=== PATIENT | male | born 1985 | race Two or more races ===

== ENCOUNTER 2016-12-02 19:17 | Emergency (ER) | payer OTHER ==
[2016-12-02 19:25] VITALS: BP 156/85; PULSE 113; RESP 18; TEMP 98.2; O2SAT 93
--- NOTE | 2016-12-02 19:26 | UCPHY ---
H & P Patient Type: New Chief Complaint Nursing Narrative: boil under left armpit x 4 days, very painful. Denies fever HPI/ROS: HPI CHIEF COMPLAINT: Abscess left Axilla HISTORY OF PRESENT ILLNESS: this patient is a 31-year-old male significant past medical history for asthma no diabetes, presents to the urgent care with a abscess under his right arm. Patient states for the past 3 days progressively getting worse and more painful. He could tolerate the pain anymore came to the urgent care for evaluation. Upon arrival here he has a large abscess right axilla 7 cm x 8 cm. Past Medical History: Asthma Past Surgical History: no recent surgical history Social History: denies use of drugs alcohol tobacco products Family History: noncontributory ROS REVIEW OF SYSTEMS: A comprehensive 10 point review of systems is otherwise negative aside from elements mentioned in the history of present illness. Exam Constitutional triage nursing summary reviewed, vital signs reviewed, awake/ alert. Eyes normal conjunctivae and sclera, EOMI, PERRLA. HENT normal inspection, atraumatic, moist mucus membranes, no epistaxis, neck supple/ no meningismus, no raccoon eyes. Respiratory clear to auscultation bilaterally, normal breath sounds, no respiratory distress, no wheezing. Cardiovascular rate normal, regular rhythm, no murmur, no edema, distal pulses normal. Gastrointestinal soft, non-tender, no rebound, no guarding, normal bowel sounds, no distension, no pulsatile mass. Genitourinary no CVA tenderness. Musculoskeletal right axilla: large abscess 7 x 8 cm, induration, fluctuance to head, no midline vertebral tenderness, full range of motion, no calf swelling , no tenderness of extremities, no meningismus, good pulses, neurovascularly intact. Skin pink, warm, & dry, no rash, skin atraumatic. Neurologic awake, alert and oriented x 3, AAOx3, moves all 4 extremities equally, motor intact, sensory intact, CN II-XII intact, normal cerebellar, normal vision, normal speech. Psychiatric normal mood/affect. Heme/Lymph/Immune no lymphadenopathy. Differential Diagnosis: includes but is not limited to in a particular order, right axillary cellulitis, right axilla abscess, MRSA infection. Medical Decision Making:Patient will need I and D of his right axillary large abscess. Packing will need to be placed. A need to be started on antibiotics and pain medicine. It is noted he is not septic is not febrile appears well nontoxic. I and D: lidocaine with epinephrine was used for local anesthesia approximately 10 cc were used. 11 blade scalpel blade was used to make a 2 cm incision a large amount of pus was removed from the right axillary abscess approximately 30 cc of pus. A packing was in place. Loculations were broken up with a Q-tip. He tolerated this well. He will have a prescription for Bactrim, Keflex, [place], ibuprofen. He understands return immediately to the emergency room if he has any worsening symptoms questions or concerns. Source: Patient - Personal History Current Tetanus Diphtheria and Acellular Pertussis (TDAP): Yes - Medical/Surgical History Hx Asthma: Yes Hx Chronic Respiratory Disease: No Hx Diabetes: No Hx Cardiac Disease: No Hx Renal Disease: No Hx Cirrhosis: No Hx Alcoholism: No Hx HIV/AIDS: No Hx Splenectomy or Spleen Trauma: No Other PMH: med hx- asthma, pre-diabetes. surg-tonsilectomy - Family History Significant Family History: No pertinent family hx - Social History Smoking Status: Never smoked Constitutional: Initial Vital Signs Temperature (C) 36.8 C 12/02/16 19:22 Heart Rate 113 H 12/02/16 19:22 Respiratory Rate 18 12/02/16 19:22 Blood Pressure 156/85 H 12/02/16 19:22 O2 Sat (%) 93 12/02/16 19:22 Allergies/Adverse Reactions: cefaclor [From [facility]] Adverse Reaction (Verified 12/02/16 19:21) Penicillins Adverse Reaction (Verified 12/02/16 19:21) IT WILL KILL ME Sulfa (Sulfonamide Antibiotics) Adverse Reaction (Verified 12/02/16 19:21) Home Medications: Medication Instructions Recorded Albuterol Hfa Anes Only [Proair 02/25/13 Hfa [facility] (*)] Cephalexin [Keflex] 500 mg PO Q6H #28 cap 12/02/16 Hydrocodone/APAP 5/325 [[place] 1 - 2 tab PO Q4H PRN #20 tab 12/02/16 5/325] Ibuprofen [Motrin (*)] 800 mg PO Q6-8PRN #14 tab 12/02/16 Sulfamethox/Tmp 800/160 mg 1 tab PO BID #14 tab 12/02/16 [Bactrim Ds] Departure - Departure Disposition: Home, Routine, Self-Care Clinical Impression: Abscess Condition: Good Instructions: Abscess (ED) Additional Instructions: 1. Please use warm compresses over this area 3 times a day for 20 minutes. 2. Please take antibiotic as prescribed. 3. Please take pain medicine as needed. 4. You need to return to the emergency room in 48 hours to have this abscess Packing removed. Prescriptions: Cephalexin [Keflex] 500 mg PO Q6H #28 cap Hydrocodone/APAP 5/325 [[place] 5/325] 1 - 2 tab PO Q4H PRN #20 tab PRN Reason: Pain, Moderate Ibuprofen [Motrin (*)] 800 mg PO Q6-8PRN #14 tab Sulfamethox/Tmp 800/160 mg [Bactrim Ds] 1 tab PO BID #14 tab - PQRS PQRS Measurement: n/a
== END 2016-12-02 20:00 | disposition home or self-care (01) ==
LOC: CED 19:17
PROC: 0H9BXZZ Drainage of Right Upper Arm Skin, External Approach (ICD-10-PCS; principal; 2016-12-02)
DX: L02.411 Cutaneous abscess of right axilla (principal)
CPT/HCPCS: 10061-PO; 99204-PO; G0463-PO

== ENCOUNTER 2016-12-04 14:03 | Emergency (ER) | payer OTHER ==
[2016-12-04 14:13] VITALS: BP 136/73; PULSE 90; RESP 18; TEMP 98.6; O2SAT 98
--- NOTE | 2016-12-04 15:04 | UCPHY ---
H & P Time Seen by Provider: 12/04/16 14:49 Patient Type: Established HPI/ROS: This patient presents for a wound evaluation of an abscess which was I and D'd in the emergency department 2 days ago. The abscess was in the left axilla. The patient tells me that he is feeling much improved with less pain and less swelling. He has not had a fever during this entire illness. A culture is still pending but the preliminary shows only mixed cutaneous growth. He is currently taking Bactrim for suspected MRSA. Smoking Status: Never smoked Physical Exam: This is a well-developed well-nourished male who is in no acute distress. He is alert and appropriate. Examination of the left axilla reveals a 2 cm incision with packing which was removed. There is some mild surrounding erythema but this is quite minimal. There is some induration but no purulent material was expressed from the wound. The dressing did have evidence of drainage. Constitutional: Initial Vital Signs Temperature (C) 37 C 12/04/16 14:10 Heart Rate 90 12/04/16 14:10 Respiratory Rate 18 12/04/16 14:10 Blood Pressure 136/73 H 12/04/16 14:10 O2 Sat (%) 98 12/04/16 14:10 O2 Delivery Mode Room Air Allergies/Adverse Reactions: cefaclor [From Ceclor] Adverse Reaction (Verified 12/02/16 19:21) Penicillins Adverse Reaction (Verified 12/02/16 19:21) IT WILL KILL ME Sulfa (Sulfonamide Antibiotics) Adverse Reaction (Verified 12/02/16 19:21) Home Medications: Medication Instructions Recorded Albuterol Hfa Anes Only [Proair 02/25/13 Hfa [facility] (*)] Cephalexin [Keflex] 500 mg PO Q6H #28 cap 12/02/16 Hydrocodone/APAP 5/325 [[place] 1 - 2 tab PO Q4H PRN #20 tab 12/02/16 5/325] Ibuprofen [Motrin (*)] 800 mg PO Q6-8PRN #14 tab 12/02/16 Sulfamethox/Tmp 800/160 mg 1 tab PO BID #14 tab 12/02/16 [Bactrim Ds] Sulfamethox/Tmp 800/160 mg 1 tab PO BID@1000,2200 #14 tab 03/13/17 [Bactrim Ds] Medical Decision Making ED Course/Re-evaluation: The packing was removed and the wound was redressed. Departure - Departure Disposition: Home, Routine, Self-Care Clinical Impression: Abscess re-check Condition: Good Instructions: Abscess Follow-up (ED) Additional Instructions: If at any time you feel that the symptoms from your abscess or worsening such as increased pain, swelling or redness you should return. Fever would be a particular concern. Apply warm packs to the area several times daily. It is okay to take a shower or bath. Continue to take your antibiotics. Adult Pain & Fever Control: We recommend Acetaminophen (Tylenol) and Ibuprofen (Motrin, Advil) for pain and fever control. When fever is high or pain severe, both drugs can be used at the same time, but at different intervals. Please note the time differences. Your dose is: Acetaminophen [650]mg every 4 to 6 hours ibuprofen [600]mg every [6] hours with food OR naproxen Sodium (Aleve) [440]mg every 12 hours. Note: do not take Acetaminophen with Hydrocodone (Vicodin, Lortab) or Oxycodone (Percocet). These medications also contain Acetaminophen. No more than 3000 mg of Acetaminophen should be taken in 24 hours (for an adult) . The maximal dose of ibuprofen that it is safe in a 24-hour period is 2400 mg. You may take 400 mg every 4 hours, 600 mg every 6 hours or 800 mg every 8 hours safely. Referrals: Stevie Almeida MD [Primary Care Provider] - As per Instructions - PQRS PQRS Measurement: Not applicable
== END 2016-12-04 15:10 | disposition home or self-care (01) ==
LOC: CED 14:03
DX: L02.412 Cutaneous abscess of left axilla (principal); Z88.0 Allergy status to penicillin; Z88.2 Allergy status to sulfonamides